=== PATIENT | male | born 1955 | race Caucasian/White ===

== ENCOUNTER 2017-10-30 07:09 | Day surgery (SDC) | payer OTHER ==
[~2017-10-30 07:09] MED LIST: Buffered Lidocaine 0.9% SYRIN* 5 ML/SYR SYRINGE INTRADERM ONE; Dexamethasone IV* 4 MG/ML 1 ML (4 MG) IV SLOW PU ONE; Famotidine IV* 10 MG/ML 2 ML (20 mg) IV ONE
[2017-10-30] MEDS ORDERED: Bupivacaine 0.25% SDV* 30 ML ONE (07:37)
[2017-10-30 10:30] VITALS: BP 123/79
--- NOTE | 2017-10-30 12:39 | OP ---
OPERATIVE REPORT: DATE OF OPERATION: 10/30/17 - BRYANT DATE OF : 51 SURGEON: Joselito Omalley MD IT SERVICE DELIVERY MANAGER: AISLINN Larkin ANESTHESIOLOGIST: None. ANESTHESIA: Local only with 0.25% plain Marcaine. PRE-OP DIAGNOSIS: Right hand foreign body in the radial aspect of the palm. POST-OP DIAGNOSIS: Right hand foreign body in the radial aspect of the palm. OPERATIVE PROCEDURE: Removal of foreign body, right radial palm. INDICATIONS: Danilo a couple of months ago got a wooden splinter in the palm, this continued to bother him. It has not gotten infected. We talked about risks and benefits and decided to remove it. ESTIMATED BLOOD LOSS: None. COMPLICATIONS: None. FINDINGS: Wooden 1 cm foreign body. DESCRIPTION OF PROCEDURE: Danilo was seen in the preoperative holding area. We had a time-out. I anesthetized the operative area. We came back to the operating room. The arm was prepped and draped in the usual fashion. The arm was exsanguinated and a forearm tourniquet was inflated to 250 mmHg. I made a transverse incision over the foreign body. Dissection was carried down. The pseudosheath over the foreign body was opened. The foreign body that was 1 cm long and a piece of wood was removed in its entirety in 1 piece. The pseudosheath was excised sharply. The skin was closed with 4-0 nylon suture and dressed with Xeroform, 4 x 4, and a Tegaderm dressing. Tourniquet was deflated. He was taken to the recovery room in stable condition. [id number]/[facility] #: [id number] [facility]PITALTheodore
== END 2017-10-30 10:30 | disposition home or self-care (01) ==
LOC: OREAST 07:09
PROVIDERS: ATTEND Orthopaedic Surgery Hand Surgery
DX: S61.441A Puncture wound with foreign body of right hand, initial encounter (principal); W45.8XXA Other foreign body or object entering through skin, initial encounter; Y92.9 Unspecified place or not applicable; Z85.46 Personal history of malignant neoplasm of prostate; Z85.71 Personal history of Hodgkin lymphoma; Z85.828 Personal history of other malignant neoplasm of skin; Z87.891 Personal history of nicotine dependence
CPT/HCPCS: 88300

== ENCOUNTER 2017-11-08 19:20 | Emergency (ER) | payer OTHER ==
--- NOTE | 2017-11-08 19:29 | UC ---
Skin Complaint HPI - HPI Summary HPI Summary: 62 yo WM presents very anxious about a tick bite to his left triceps. 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 His removed the tick with tweezers. He is confident that the tick was on him less than 24 hours. He brought the tick with him today and it does not appear engorged. - History of Current Complaint Time Seen by Provider: 11/08/17 19:29 Stated Complaint: TICK BITE ON ARM Hx Obtained From: Patient Onset/Duration: Sudden Onset Current Severity: None - Allergy/Home Medications Allergies/Adverse Reactions: Allergies Allergy/AdvReac Type Severity Reaction Status Date / Time Penicillins Allergy Swelling Verified 11/08/17 19:38 Of Face,Lips,& Throat Review of Systems Constitutional: Negative Skin: Other - Tick bite left arm Eyes: Negative ENT: Negative Respiratory: Negative Cardiovascular: Negative Gastrointestinal: Negative Neurovascular: Negative Neurological: Negative Psychological: Negative All Other Systems Reviewed And Are Negative: Yes PMH/Surg Hx/FS Hx/Imm Hx Previously Healthy: Yes Endocrine History: Hypothyroidism - Surgical History Surgical History: Yes Surgery Procedure, Year, and Place: BONE MARROW TRANSPLANT - Family History Known Family History: Positive: Unknown - Social History Occupation: Retired Lives: With Family Alcohol Use: 2 DRINKS AMONTH Substance Use Type: None Smoking Status (MU): Former Smoker Physical Exam - Summary Physical Exam Summary: GENERAL: NAD. WDWN. No pain distress. SKIN: Left triceps: there is a 2mm diameter of mild erythema and superficial skin loss. No streaking, bleeding, or drainage. No remaining tick pieces appreciated. NECK: Supple. Nontender. No lymphadenopathy. CHEST: No accessory muscle use. Breathing comfortably and in no distress. CV: RRR. Without m/r/g. NEURO: Alert. CN II-XII grossly intact. PSYCH: Age appropriate behavior. Triage Information Reviewed: Yes Course/Dx - Course Course Of Treatment: Tick bite left arm. Pt is confident that it was on him <24 hours and tick with them today is not engorged. No treatment needed at this time. - Diagnoses Provider Diagnoses: Tick bite left arm Discharge - Sign-Out/Discharge Documenting (check all that apply): Discharge/Admit/Transfer - Discharge Plan Condition: Stable Disposition: HOME Patient Education Materials: Lyme Disease (ED), Tick Bite (ED) Referrals: Ileana Alfaro MD [Primary Care Provider] - Additional Instructions: If you develop a fever, shortness of breath, chest pain, new or worsening symptoms - please call your PCP or go to the ED. TICK BITE: You have been bitten by a tick. Once the tick is removed, these "bites" usually cause no problems. Tick fever, tick paralysis, Oolitic Spotted fever, and Lyme disease are uncommon -- but you should mention this tick bite to your doctor if you develop unusual symptoms in the next several weeks. If you develop any of the following, please see your physician promptly: (1) Fever, chills, or generalized malaise associated with a headache. (2) A red round area at the site of the bite (or elsewhere) (3) Joint pain, joint swelling or generalized weakness. (4) Redness, swelling, or drainage at the site of the bite. - Billing Disposition and Condition Condition: STABLE Disposition: HOME
[2017-11-08 19:38] VITALS: BP 118/75
--- OUTSIDE RECORDS SUMMARY | 2017-11-08 22:05 | XMS REPORT ---
:1955 External Reference #:[id number] Author Organization [facility] [employer] Address [address] [address] Phone [phone] Care Team Providers Name Role Phone Ileana Alfaro MD Primary Care Physician Unavailable Payers Type Date Identification Numbers Payment Provider Subscriber Commercial Policy Number: [id number] [employer] Insurance namita rubio PayID: [id number] [address] [place] [address] Problems Date Description Provider Status Onset: 10/29/2017 Family history of prostate cancer Joselito Omalley MD Active Onset: 10/29/2017 Non-Hodgkin's lymphoma (clinical) Joselito Omalley MD Active Social History Type Date Description Comments Lives With Spouse Occupation [employer] Use Occasionally consumes alcohol Smoking Patient is a former smoker Exercise Type/Frequency Exercises regularly Allergies, Adverse Reactions, Alerts Date Description Reaction Status Severity Comments 10/29/2017 Penicillin active Medications Medication Date Status Form Strength Qnty SIG Indications Ordering Provider No Active 10/29/2017 Active Unknown Medications Vital Signs Date Vital Result Comment 10/29/2017 Height 70 inches 5'10" Weight 237.00 lb Heart Rate 64 /min BP Systolic 140 mmHg BP Diastolic 78 mmHg Respiratory Rate 12 /min Body Temperature 97.9 F Pain Level 0 BMI (Body Mass Index) 34.0 kg/m2 Results Description No Information Procedures Description No Information Plan of Care Future Appointment(s):11/12/2017 8:00 am - Joselito Omalley MD at [facility]10/29/2017 - RADHA [id number] Superficial foreign body of right hand, initial encounterFollow up:Follow up: 10-14 days postop
== END 2017-11-08 19:39 | disposition home or self-care (01) ==
LOC: UCEAST 19:20
DX: S40.862A Insect bite (nonvenomous) of left upper arm, initial encounter (principal); W57.XXXA Bitten or stung by nonvenomous insect and other nonvenomous arthropods, initial encounter; Y93.9 Activity, unspecified; Y92.9 Unspecified place or not applicable; E03.9 Hypothyroidism, unspecified; Z88.0 Allergy status to penicillin; Z87.891 Personal history of nicotine dependence
CPT/HCPCS: 99211; G0463

== ENCOUNTER 2018-07-13 20:53 | Emergency (ER) | payer MEDICARE, OTHER ==
--- OUTSIDE RECORDS SUMMARY | 2018-07-13 21:09 | XMS REPORT | Continuity of Care Document ---
:1955 External Reference #:[id number] Author Name Evon Mora Care Team Providers Name Role Phone Ileana Alfaro MD Primary Care Physician Unavailable Payers Type Date Identification Numbers Payment Provider Subscriber Policy Number: [id number] [employer] Insurance namita cadena PayID: [id number] [address] [place] [address] Advance Directives Description No Information Available Problems Date Description Provider Status Onset: 10/29/2017 Family history of prostate cancer Joselito Omalley MD Active Onset: 10/29/2017 Non-Hodgkin's lymphoma (clinical) Joselito Omalley MD Active Family History Description No Information Available Social History Type Date Description Comments Sex Unknown Lives With Spouse Occupation [employer] Use Occasionally consumes alcohol Tobacco Use Start: Unknown End: Patient is a former smoker Unknown Smoking Status Reviewed: 06/18/18 Patient is a former smoker Exercise Type/Frequency Exercises regularly Allergies, Adverse Reactions, Alerts Date Description Reaction Status Severity Comments 10/29/2017 Penicillin Active Medications Medication Date Status Form Strength Qnty SIG Indications Ordering Provider Naproxen Active Tablets 500mg 60tabs 1 by mouth M70.42 Larry Dave 018 twice a Ninfa, day as MD needed pain No Active Hx Unknown Medications 018 - 018 Bactrim DS Hx Tablets 800-160mg 6tabs 1 tab ds M70.42 Larry Dave 018 - by mouth Ninfa, twice a 018 day x 3 days Tramadol HCL Hx Tablets 50mg 30tabs 1-2 Joselito 018 - tablets by MD Lyssa mouth 018 every 6 hours as needed pain No Active Hx Unknown Medications 018 - 018 Medications Administered in Office Medication Date Status Form Strength Qnty SIG Indications Ordering Provider No Injection 04/16/ Administered Injection [facility] 2017 MD Ninfa Dexamethasone 04/16/ Administered Injection [facility] Jose A 2017 Pily Ocasio, 1 MG Depomedrol 40MG 04/16/ Administered Injection [facility] 2017 MD Ninfa Depomedrol 40MG 03/05/ Administered Injection [facility] 2017 MD Ninfa Immunizations Description No Information Available Vital Signs Date Vital Result Comment 06/18/2018 8:02am Heart Rate 82 /min Respiratory Rate 18 /min Body Temperature 97.6 F Pain Level 2 04/16/2018 8:22am Heart Rate 72 /min BP Systolic 148 mmHg BP Diastolic 88 mmHg Respiratory Rate 14 /min Pain Level 0 03/05/2018 4:05pm Height 70 inches 5'10" Weight 225.00 lb Heart Rate 80 /min BP Systolic 128 mmHg BP Diastolic 74 mmHg Respiratory Rate 12 /min Pain Level 0 BMI (Body Mass Index) 32.3 kg/m2 02/19/2018 8:09am Height 70 inches 5'10" Weight 225.00 lb BP Systolic 132 mmHg BP Diastolic 70 mmHg Respiratory Rate 18 /min Body Temperature 97.3 F Pain Level 0 BMI (Body Mass Index) 32.3 kg/m2 11/12/2017 7:59am Height 70 inches 5'10" Weight 225.00 lb Heart Rate 69 /min BP Systolic 138 mmHg BP Diastolic 74 mmHg Body Temperature 97.3 F BMI (Body Mass Index) 32.3 kg/m2 10/29/2017 8:54am Height 70 inches 5'10" Weight 237.00 lb Heart Rate 64 /min BP Systolic 140 mmHg BP Diastolic 78 mmHg Respiratory Rate 12 /min Body Temperature 97.9 F Pain Level 0 BMI (Body Mass Index) 34.0 kg/m2 Results Test Date Facility Test Result H/L Range Note Laboratory test 10/30/2017 [facility] Surgical SEE RESULT 1 , [address] [place] [address] [phone] 1 [id number] 2 SEE RESULT BELOW Name: FARRAH CADENA : [address]: Joselito Omalley MD Acct: [id number] Unit: [id number] AGE: 62 Location: [facility] Re10/30/17 SEX: M Status: DEP [facility] [place] SPEC: [id number] [place]: 10/30/17-1002 [facility] DR: Joselito Omalley MD REQ: [id number] RECD: 10/30/171233 STATUS: SOUT _ ORDERED: LEVEL 1 COMMENTS: [id number] FINAL DIAGNOSIS Right hand, foreign body removal: Foreign body as described above (Gross diagnosis). PRE-OPERATIVE DIAGNOSIS Foreign body right hand. GROSS DESCRIPTION The specimen is received in formalin labeled, Foreign Body Right Hand, and consists of a 1.0 by up to 0.4 x 0.1 cm spencer-brown fibrous lamellar triangular hard fragment. Per established hospital medical staff protocol, no tissue is submitted. Gross only. Signed (signature on file) Gertrude Avila MD 1044 END OF REPORT DEPARTMENT OF PATHOLOGY, [address] [place] [address] Gilmer Gamino M.D. Director [facility] # [id number] Procedures Date Code Description Status 04/16/2018 Inject/Drain Joint/Bursa Major W/O US Completed 04/16/2018 Inject/Drain Joint/Bursa Major W/O US Completed 03/05/2018 Inject/Drain Joint/Bursa Major W/O US Completed 10/30/2017 10791 I&D Of Foreign Body,SQ Tissue Complicated Completed 10/30/2017 79669 I&D Of Foreign Body,SQ Tissue Complicated Completed Encounters Type Date Location Provider Dx Diagnosis Office Visit 04/16/2018 Orthopedic Larry Dave M70.42 Prepatellar 8:30a [facility] Ocasio MD bursitis, left knee M25.561 Pain in right knee M25.461 Effusion, right knee Office Visit 03/05/2018 3:30p Orthopedic Larry Dave M70.42 [facility] Ninfa bursitis, left [facility] knee Office Visit 02/19/2018 8:00a Orthopedic Larry Dave M70.42 [facility] Ninfa bursitis, left [facility] knee M70.41 Prepatellar bursitis, right knee M70.22 Olecranon bursitis, left elbow Office Visit 11/12/2017 8:00a Orthopedic Joselito S60.551D [facility] Lyssa foreign body of C.M.A. right hand, subsequent encounter Office Visit 10/29/2017 8:30a Parrish Yee S60.551A [facility] Lyssa foreign body of [facility] right hand, initial encounter M70.21 Olecranon bursitis, right elbow Plan of Treatment 06/18/2018 - Larry Ocasio, MDM70.42 Prepatellar bursitis, left kneeFollow up:Follow up: As [id number] Unilateral primary osteoarthritis, right knee
[2018-07-13 23:03] LABS: Activated Partial Thrombo Time 31.6 seconds (26.0-36.3); INR 0.94 (0.77-1.02)
[2018-07-13] MEDS ORDERED: Rivaroxaban TAB(*) 15 MG PO ONE ×2 (23:14)
--- NOTE | 2018-07-13 23:16 | ED ---
Lower Extremity - HPI Summary HPI Summary: 62-year-old male presents to intermittent leg left pain for the past 3 days. He states he's noticed more swelling to his left leg. He states he has a family history of blood clots. Denies any chest pain or shortness of breath. No palpitations. no injury. No numbness or tingling. No back pain. Has no medical conditions. He had labs ordered by primary and had an elevated d- dimer. no history of GI bleeds or abnormally bleeding. no blood in his stool or dark tarry stool. - History of Current Complaint Chief Complaint: EDExtremityLower Stated Complaint: LT LEG SWELLING Time Seen by Provider: 07/13/18 22:00 Pain Intensity: 5 - Allergies/Home Medications Allergies/Adverse Reactions: Allergies Allergy/AdvReac Type Severity Reaction Status Date / Time Penicillins Allergy Swelling Verified 07/13/18 20:57 Of Face,Lips,& Throat PMH/Surg Hx/FS Hx/Imm Hx Endocrine/Hematology History: Denies: Hx Diabetes Cardiovascular History: Denies: Hx Myocardial Infarction - Cancer History Cancer Type, Location and Year: Hx Non-Hodgkins Lymphoma, Prostate, skin CA Hx Chemotherapy: Yes - 1996 [facility] - Surgical History Surgery Procedure, Year, and Place: BONE MARROW TRANSPLANT Infectious Disease History: No Infectious Disease History: Denies: Traveled Outside the [place] in Last 30 Days - Family History Known Family History: Positive: Unknown, Blood Disorder - Social History Alcohol Use: Rare Substance Use Type: Reports: None Smoking Status (MU): Former Smoker Review of Systems Negative: Fever Negative: Chest Pain Negative: Shortness Of Breath Positive: Myalgia - left leg, Edema - left leg All Other Systems Reviewed And Are Negative: Yes Physical Exam Triage Information Reviewed: Yes Vital Signs On Initial Exam: Initial Vitals Temp Pulse Resp BP Pulse Ox 97.8 F 90 16 138/63 97 07/13/18 20:54 07/13/18 20:54 07/13/18 20:54 07/13/18 20:54 07/13/18 20:54 Vital Signs Reviewed: Yes Appearance: Positive: Well-Appearing Skin: Positive: Warm, Dry Head/Face: Positive: Normal Head/Face Inspection Eyes: Positive: Normal, Conjunctiva Clear ENT: Positive: Pharynx normal Respiratory/Lung Sounds: Positive: Clear to Auscultation, Breath Sounds Present Cardiovascular: Positive: Normal, RRR Musculoskeletal: Positive: Strength/ROM Intact - left leg, Edema Left - leg, Other - varicose veins present Neurological: Positive: Normal Psychiatric: Positive: Normal Diagnostics - Vital Signs Vital Signs Temp Pulse Resp BP Pulse Ox 07/13/18 22:19 80 95 07/13/18 22:17 83 152/89 96 07/13/18 20:54 97.8 F 90 16 138/63 97 - Laboratory Lab Results: Lab Results 07/13/18 Range/Units 22:37 INR (Anticoag Therapy) 0.94 (0.77-1.02) APTT 31.6 (26.0-36.3) seconds Lab Statement: Any lab studies that have been ordered have been reviewed, and results considered in the medical decision making process. - Ultrasound No standard instances Ultrasound Interpretation Completed By: Radiologist Summary of Ultrasound Findings: IMPRESSION: Acute left lower cavity DVT mid femoral through calf veins. Re-Evaluation - Re-Evaluation First Eval Re-Evaluation Time: 23:00 Comment: discussed options for blood thinners and will do xarelto Lower Extremity Course/Dx - Course Course Of Treatment: 62-year-old male presents to intermittent leg left pain for the past 3 days. He states he's noticed more swelling to his left leg. He states he has a family history of blood clots. Denies any chest pain or shortness of breath. No palpitations. no injury. No numbness or tingling. No back pain. Has no medical conditions. He had labs ordered by primary and had an elevated d-dimer. no history of GI bleeds or abnormally bleeding. no blood in his stool or dark tarry stool. On exam tenderness left calf. Neurovascular intact. Ultrasound shows DVT mid femoral to the calf. Had lab work done earlier today with normal kidney function. discussed options for blood thinners and patient decided on xarelto. We will give first 21 days of xarelto and told to follow with primary for continued care. Gave precautions with being on blood thinners. Patient understands agrees with plan. - Diagnoses Differential Diagnosis/HQI/PQRI: Positive: DVT, Sprain, Strain Provider Diagnoses: Deep vein thrombosis (DVT) of left lower extremity Discharge - Sign-Out/Discharge Documenting (check all that apply): Patient Departure - Discharge Plan Condition: Good Disposition: HOME Prescriptions: Rivaroxaban TAB(*) [Xarelto 15 mg(*)] 15 mg PO BID #40 tab Patient Education Materials: Rivaroxaban (By mouth), Deep Vein Thrombosis (ED) Referrals: Ileana Alfaro MD [Primary Care Provider] - Additional Instructions: Take xarelto twice a day for 21 days then once a day Take with food Avoid Aspirin or ibuprofen, use Tylenol for pain Follow up with primary care physician for continued care Return to ED if develop any chest pain or shortness of breath any new or worsening symptoms - Billing Disposition and Condition Condition: GOOD Disposition: Home
[2018-07-13 23:38] VITALS: BP 129/80
== END 2018-07-13 23:40 | disposition home or self-care (01) ==
LOC: ED 20:53
DX: R07.89 Other chest pain (principal); E16.2 Hypoglycemia, unspecified; R00.2 Palpitations; F17.210 Nicotine dependence, cigarettes, uncomplicated
CPT/HCPCS: 36415; 85610; 85730; 99283